=== PATIENT | female | born 1940 | race Caucasian/White ===

== ENCOUNTER → 2017-12-13 10:07 | Outpatient (CLI) | payer MEDICARE, OTHER, BC, SELFPAY ==
--- NOTE | 2017-12-15 06:53 | PFTCOMP ---
COMPLETE PULMONARY FUNCTION TEST INTERPRETATION Brief HPI: Patient is a 77 year old female, currently under the care of Dr. Jin, who presents to [facility] for complete pulmonary function tests secondary to diagnosis of cough. Respiratory therapist reports good effort and reproducible results. Interpretation: Forced expiration spirometry shows a moderately-severe large airways obstructive ventilatory defect with an FEV1 of 52% predicted. There is no significant bronchodilator response by strict ATS criteria. Spirograms are of good quality and plateau slowly, indicating slowly emptying areas of the lungs. The respiratory flow volume loop shows decreased expiratory flow rates at all lung volumes consistent with airway obstruction. Lung volumes by body plethysmography show a normal total lung capacity at 4.7 L, 95 % predicted. FRC and RV are elevated out of proportion. Lung volume measurements are consistent with air-trapping. Diffusion capacity by carbon monoxide is decreased at 46 % predicted. The airway resistance is elevated. No previous pulmonary function tests were available for review. Impression: Irreversible moderately severe large airways obstructive ventilatory defect with a symmetric reduction diffusing capacity, consistent with a diagnosis of COPD.
--- NOTE | 2017-12-15 06:56 | PFTCOMP_ITS ---
COMPLETE PULMONARY FUNCTION TEST INTERPRETATION Brief HPI: Patient is a 77 year old female, currently under the care of Dr. Jin , who presents to [facility] for complete pulmonary function tests secondary to diagnosis of cough. Respiratory therapist reports good effort and reproducible results. Interpretation: Forced expiration spirometry shows a moderately-severe large airways obstructive ventilatory defect with an FEV1 of 52% predicted. There is no significant bronchodilator response by strict ATS criteria. Spirograms are of good quality and plateau slowly, indicating slowly emptying areas of the lungs. The respiratory flow volume loop shows decreased expiratory flow rates at all lung volumes consistent with airway obstruction. Lung volumes by body plethysmography show a normal total lung capacity at 4.7 L , 95 % predicted. FRC and RV are elevated out of proportion. Lung volume measurements are consistent with air-trapping. Diffusion capacity by carbon monoxide is decreased at 46 % predicted. The airway resistance is elevated. No previous pulmonary function tests were available for review. Impression: Irreversible moderately severe large airways obstructive ventilatory defect with a symmetric reduction diffusing capacity, consistent with a diagnosis of COPD.
== END ==
PROVIDERS: Family Provider Family Medicine; PCP Family Medicine; Visit Provider Internal Medicine Critical Care Medicine
DX: R05 Cough (principal)
CPT/HCPCS: 94060; 94726; 94729

== ENCOUNTER 2018-02-19 17:19 | Inpatient (IN) | payer MEDICARE, OTHER, BC, SELFPAY ==
[2018-02-19 17:20] VITALS: BP 125/61; PULSE 81; RESP 16; TEMP 36.7; O2SAT 99; BMI 28.3
--- NOTE | 2018-02-19 17:50 | EKG12_ITS ---
Test Reason : ILLNESS Blood Pressure : / mmHG Vent. Rate : 077 BPM Atrial Rate : 077 BPM P-R Int : 164 ms QRS Dur : 086 ms QT Int : 406 ms P-R-T Axes : 051 030 071 degrees QTc Int : 459 ms Normal sinus rhythm Normal ECG Confirmed by CAITLIN JEFFERS, IRWIN ([id number]), editor managing newspaper BOBBI JONES ([id number]) on 02/25/2018 3:39:11 PM Referred By: SPARKLE Confirmed By:IRWIN TUCKER MD
--- NOTE | 2018-02-19 17:51 | CT_ITS ---
STUDY: CT ABDOMEN AND PELVIS WITH CONTRAST REASON FOR EXAM: Female, 77 years old. Crohn's, diverticulitis, nausea/vomiting/diarrhea RADIATION DOSAGE (If Supplied By Facility): CTDIvol = ( 16.66 ) mGy, DLP = ( 934.77 ) mGycm TECHNIQUE: Transaxial images were obtained from the dome of the diaphragm to the symphysis pubis without oral contrast. 100 ml of Isovue 300 contrast was administered. Sagittal and coronal images were reconstructed. Individualized dose optimization techniques were used for this CT. COMPARISON: None. FINDINGS: The visualized lung bases are unremarkable. The visualized portions of the heart are within normal limits. Normal liver. Mildly thickened gallbladder wall. No significant dilatation of the extrahepatic biliary system. Normal spleen. Normal pancreas. Normal bilateral adrenal glands. Punctate nonobstructive stone in the right kidney. 6 mm lower pole probable cyst of the left kidney. Normal visualized stomach. Mild wall thickening of the terminal ileum with mild adjacent mesenteric thickening. Prior surgery of the colon. Air-fluid levels are noted within the colon. The appendix is not visualized. Calcified abdominal aorta. Focal dilatation of the proximal abdominal aorta measuring 3.3 cm in diameter. Normal inferior vena cava. Normal retroperitoneum. Normal urinary bladder. Normal abdominal wall. Normal osseous structures. CT/Abdomen/Pelvis WITH Contrast IMPRESSION: Mild gallbladder wall thickening. Punctate nonobstructive right renal stone. Left renal cyst. Wall thickening of the terminal ileum with mild adjacent mesenteric stranding. This may be related to patient's history of Crohn's disease. Fluid colonic content with air-fluid levels. Focal dilatation of the proximal abdominal aorta. Electronically Signed: Kwan Escobar DO at 20:58 EDT Tel [phone], Service support ,
--- NOTE | 2018-02-19 17:51 | ED.VISSUMM ---
- ER Visit Summary Date of Service: 02/19/18 Chief Complaint: Abdominal pain History of Present Illness: The patient is a 77 F presenting with intermittent abdominal pain ?3 days. She has had nausea, vomiting, diarrhea. It is not unusual for her to have diarrhea. She has a history of Crohn's disease. She states she has had diarrhea approximately 6-10 times today. She had no blood in her stool. She has been vomiting 2-3 times today. She had no recent antibiotics or travel. She has a history of previous appendectomy and previous bowel resection. She does not currently have a GI physician. Physical Examination: Vitals are stable. Patient is afebrile. Alert no acute distress. HEENT exam is unremarkable. Neck is supple. Lungs are clear and equal bilaterally. Heart is regular rate and rhythm. Abdomen is soft mild diffuse tenderness with no rebound or guarding. Extremities are unremarkable. Skin is warm and dry. No focal neurologic deficit. Remainder of exam is unremarkable. Emergency Department Course and Treatment: Patient given IV fluids, Zofran. EKG is sinus rate is 77 with no acute changes. Chest x-ray shows right basilar atelectasis. CBC unremarkable. Chemistries show glucose 126, BUN 50, creatinine 1.65. This is elevated from her baseline. AST 60, lipase 196. CT abdomen pelvis shows mild gallbladder wall thickening, punctate nonobstructive right renal stone. Left renal cyst. wall thickening of the terminal ileum with mild adjacent mesenteric stranding. This may be related to patient's history of Crohn's disease. Fluid colonic content with air-fluid levels. Focal dilatation of the proximal abdominal aorta. Patient continues to be nauseated in the ED. Stool studies are ordered. Discussed with Dr. Zapata for admission. Disposition: Admission Impression: Nausea, vomiting, diarrhea; Crohn's flare; TEJINDER This note was generated with [employer] dictation software. It may contain incorrect words, spelling, and punctuation that were not noted in review of the chart prior to signing ED Disposition - Plan for ED Patient: Chief Complaint: Nausea/Vomiting/Diarrhea Referrals: Jorgito Gutierres III, MD [Primary Care Provider] -
--- NOTE | 2018-02-19 18:00 | RAD_ITS ---
STUDY: X-RAY CHEST REASON FOR EXAM: Female, 77 years old. Dehydration, shortness of breath TECHNIQUE: Single frontal view COMPARISON: October 04, 2008 FINDINGS: The lungs are clear and expanded. Minimal right basilar atelectasis. Normal size heart. Normal mediastinum and coby. Normal visualized pulmonary arteries. Normal visualized aortic arch and descending thoracic aorta. Normal visualized thoracic spine. Normal visualized ribs, clavicles, and shoulders. There is no demonstrated abnormality of the visualized soft tissue structures of the upper abdomen. RAD/Chest 1 View (Portable) IMPRESSION: Minimal right basilar atelectasis. Electronically Signed: Kwan Escobar DO at 18:24 EDT Tel [phone], Service support ,
[2018-02-19 18:05] LABS: Absolute Lymphocyte Count 2.12 X10^3/ul (0.83-4.51); Absolute Neutrophil Count 5.9 X10^3/uL (2.0-7.7); Basophil# 0.02 X10^3/uL; Basophil% 0.2 % (0-1); Eosinophil# 0.06 X10^3/uL; Eosinophils% 0.7 % (0-5); Hematocrit 38.8 % (37-47); Hemoglobin 12.1 g/dl (12.0-15.0); Lymphocyte # 2.12 X10^3/ul (4.0); Lymphocyte % 24.4 % (19-41); Mean Corp Hgb Conc 31.2 g/gl (32-36); Mean Corpuscular Hgb 25.7 pg (27.0-32.0); Mean Corpuscular Volume 82.4 fL (81-99); Mean Platelet Vol. 8.6 fl (6.2-12.0); Monocyte# 0.58 X10^3/uL; Monocyte% 6.7 % (0-10); Neutrophil % 67.9 % (47-70); POSITIVE COUNT NO; POSITIVE DIFFERENTIAL NO; POSITIVE MORPHOLOGY NO; Platelet Count 372 K/mm3 (150-450); RBC Distribution Width CV 16.2 % (11.6-14.6); RBC Distribution Width SD 49.2 fl (35.1-43.9); Red Blood Count 4.71 M/mm3 (4.2-5.4); White Blood Count 8.7 K/mm3 (4.4-11.0)
[2018-02-19] MEDS: 0.9% Normal Saline 1,000 ML 1000 ML IV (18:05)
[2018-02-19 18:16] LABS: ALB/GLOB Ratio 0.6 RATIO (0.9-2.4); AST(SGOT) 60 U/L (15-37); Alanine Aminotransfer ALT/SGPT 37 U/L (13-56); Albumin, Serum 3.1 g/dL (3.2-5.0); Alkaline Phosphatase 68 U/L (45-117); Anion Gap 7 (5-15); BUN 50 mg/dL (7-18); BUN/Creat Ratio 30.3 RATIO (10-20); Calcium,Total 8.5 mg/dL (8.5-10.1); Chloride 108 mmol/L (98-107); Creatinine, Serum 1.65 mg/dL (0.55-1.02); EST Glomerular Filtration Rate 32 mL/min (>60); Est Glom Filt Rate - Afr Amer 39 mL/min (>60); Estimated Creatinine Clearance 24.27 ml/min; Globulin 5.2 g/dL (2.2-4.2); Glucose 126 mg/dL (74-106); Lipase 196 U/L (73-393); Potassium 4.2 mmol/L (3.5-5.1); Protein, Total 8.3 g/dL (6.4-8.2); Sodium Level 138 mmol/L (136-145)
[2018-02-19] MEDS: Ondansetron 4 MG/2 ML Vial IV (18:52)
[2018-02-19 19:19] VITALS: BP 118/64; PULSE 79; RESP 14; O2SAT 99
[2018-02-19] MEDS: 0.9% Normal Saline 1,000 ML 999 ML IV (20:05)
[2018-02-19 20:24] LABS: Bacteria 0 SEEN /hpf (None Seen); Mucous, Urine 0 SEEN /hpf (<or=2+); Red Blood Cells-Urine 0 SEEN /hpf (0-5); Squamous Epithelial Cells - UA 0 SEEN /hpf (5-10); White Blood Cells 0 SEEN /hpf (0-5)
[2018-02-19 20:58] LABS: Color, Urine Yellow (Yellow); Glucose, Dipstick Normal (Normal); Ketone-Dipstick Negative (Negative); Leukocyte Esterase-Dipstick Negative /ul (Negative); Nitrite-Dipstick Negative (Negative); Occult Blood-Urine Negative /ul (Negative); Protein-Dipstick 15 mg/dl (Negative); Specific Gravity, Urine 1.015 (1.002-1.030); Urine Bilirubin Dipstick Negative (Negative); Urine Clarity Clear (Clear); Urine Urobilinogen Normal (Normal)
[2018-02-19 21:09] VITALS: PULSE 75; RESP 15; O2SAT 100
[2018-02-19 21:25] LABS: Hyaline Cast 0-5 SEEN /lpf (0-5)
[2018-02-19 21:39] VITALS: BP 118/64; PULSE 72; RESP 18; O2SAT 97
--- NOTE | 2018-02-19 21:50 | PCM.HP.STD ---
Problem List (1) Stage 2 moderate COPD by GOLD classification Status: Chronic Comment: FEV1 52% of predicted (2) Crohns disease Status: Chronic (3) Rheumatoid arthritis Status: Chronic Qualifiers: (4) HTN (hypertension) Status: Chronic (5) Dyslipidemia Status: Chronic History of Present Illness Date of Admission: 02/19/18 Chief Complaint: Abdominal pain. The patient is a 77 year old F with past medical history as mentioned above presented to the emergency room because of abdominal pain and diarrhea. The patient herself is a poor informant and she was able to provide brief history. Her daughter who is the caregiver was at the bedside and provides most of the information. According to the patient, his main presentation is vague abdominal pain, more on the left side, intermittent pain, sharp, 8 out of 10 in severity, sometimes goes across her abdomen, associated with diarrhea as well as intermittent nausea and vomiting. She does have a history of Crohn's disease and normally, she has 6-8 bowel movement daily with loose stool without blood. Her diarrhea has been the same frequency as before without any change. Her daughter mentioned that she has been complaining of abdominal pain as well as nausea and vomiting and she was not able to eat or drink for the last couple of days. She denies fever or chills. Denied urinary symptoms. She has a history of Crohn's disease and she is on prednisone for long time. She has a history of rheumatoid arthritis and she has been on [place] as needed as well as prednisone. She has history of hypertension and her blood pressure seems under control with lisinopril and Aldactone. In the emergency room, her vital signs were stable and she was afebrile her routine blood work was remarkable for BUN 50 and creatinine of 1.65. LFT was normal. Lipase was normal. Urinalysis revealed no evidence of acute cystitis or UTI. EKG revealed normal sinus rhythm without evidence of acute ischemic changes. CT scan abdomen and pelvis with contrast revealed mild thickening of the gallbladder wall, punctate nonobstructive right kidney stone, wall thickening of the terminal ileum with mild adjacent mesenteric stranding. Chest x-ray showed no infiltrate, consolidation or effusion. She is being admitted for mild acute exacerbation of Crohn's disease and acute kidney injury. Past Medical History Past Medical History (Chronic Problems): Chronic Problems (Last Reviewed 12/31/17 @ 10:27 by Yuki Casarez, QUALITY CONTROL ANALYST-C) PND (post-nasal drip) (Chronic) Stage 2 moderate COPD by GOLD classification (Chronic) FEV1 52% of predicted Tobacco dependence in remission (Chronic) Chronic cough (Chronic) Crohns disease (Chronic) Rheumatoid arthritis (Chronic) Immunosuppressed status (Chronic) on etanercept HTN (hypertension) (Chronic) Dyslipidemia (Chronic) Allergies atorvastatin Allergy (Severe, Verified 02/19/18 17:28) Unknown rosuvastatin calcium [From Crestor] Allergy (Verified 02/19/18 17:28) Unknown prednisone Adverse Reaction (Severe, Verified 02/19/18 17:28) mental status change Home Medications: Ambulatory Orders Medication Instructions Recorded Hydrocodone Bitart/Apap 5-325 1 tab PO Q6H PRN PRN #20 tab 11/14/14 [[place] 5/325] Fluoxetine [Prozac] 10 mg PO DAILY 11/16/14 Lisinopril [Zestril] 20 mg PO DAILY 11/16/14 diphenoxylate-atropine 2.5 1 tab PO .QID PRN tab 11/28/17 mg-0.025 mg tablet prednisone 5 mg tablet 5 mg PO QDAY 11/28/17 Spironolactone [Aldactone] 25 mg PO DAILY 02/19/18 Surgical History: appendectomy, total hip arthroplasty Psychiatric History: Depression 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 Denies: Chills, Fever Eyes: Denies: Blurred vision, Double vision, Drainage, Redness HEENT: Denies: Difficulty Hearing, Ear Pain, Eye Pain, Nasal Congestion, Sore Throat Cardiovascular: Denies: Chest Pain, Chest Pressure, Chest Tightness, Heaviness, Palpitations, Syncope Respiratory: Denies: Cough, Pleuritic Pain, Shortness of Breath, Sputum production, Wheezing Gastrointestinal: Reports: Abdominal Pain, Diarrhea, Nausea, Vomiting. Denies: Constipation, Hematochezia, Melena Genitourinary: Denies: Dysuria, Frequency, Hematuria Musculoskeletal: Denies: Arm Pain, Back Pain, Foot Pain Skin: Denies: Dryness, Rash Neurological: Denies: Balance problems, Double vision, Change in Speech, Slurred speech, Confusion, Headaches, Incoordination, Numbness Psychiatric: Denies: Anxiety, Depression Endocrine: Denies: Change in Body Habitus, Polydipsia VTE Information - Inpt Only VTE Present on Admission: No VTE Mechan Device Prophylaxis: None VTE Pharm Prophylaxis ordered?: Yes - Physical Exam General: Alert, Oriented x3, Cooperative, No apparent distress HEENT: Atraumatic, PERRLA, EOMI Oral: Moist Mucosa, No Gingival or Mucosal Lesions/ Ulcerations Neck: Supple, No JVD, Negative Carotid Bruits, Trachea Midline, Thyroid Normal Size and Texture Lungs: Clear to auscultation, No rhonchi, No wheeze, No rales, Diminished Cardiovascular: Regular rate, Regular Rhythm, Normal S1, Normal S2, PMI Normal Abdomen: Bowel Sounds Present, Soft, Non Tender, Non-Distended, No Hepato-splenomegaly Extremities: No clubbing, No cyanosis, No edema Skin: No rashes, No breakdown Lymphatic: No Cervical, Supraclavicular, or Inguinal Adenopathy Neurological: Cranial nerves II-XII grossly intact, Motor Exam 5/5 strength throughout Psych/Mental Status: Normal Affect, Appropriate, Alert and oriented to time, place, person, mood and affect Vital Signs Temp Pulse Resp BP Pulse Ox 98.1 F 72 18 118/64 97 02/19/18 17:20 02/19/18 21:39 02/19/18 21:39 02/19/18 21:39 02/19/18 21:39 Laboratory Tests 02/19/18 02/19/18 02/19/18 Range/Units 20:19 17:35 17:35 WBC 8.7 (4.4-11.0) K/mm3 RBC 4.71 (4.2-5.4) M/mm3 Hgb 12.1 (12.0-15.0) g/dl Hct 38.8 (37-47) % MCV 82.4 (81-99) fL MCH 25.7 L (27.0-32.0) pg MCHC 31.2 L (32-36) g/gl RDW 16.2 H (11.6-14.6) % RDW Differential 49.2 H (35.1-43.9) fl Plt Count 372 (150-450) K/mm3 MPV 8.6 (6.2-12.0) fl Immature Gran % (Auto) 0.100 (0.0-0.9) % Neut % (Auto) 67.9 (47-70) % Lymph % (Auto) 24.4 (19-41) % [place] % (Auto) 6.7 (0-10) % Eos % (Auto) 0.7 (0-5) % Baso % (Auto) 0.2 (0-1) % Absolute Neuts (auto) 5.9 (2.0-7.7) X10^3/uL Absolute Lymphs (auto) 2.12 (0.83-4.51) X10^3/ul Total Counted Not Reportable Sodium 138 (136-145) mmol/L Potassium 4.2 (3.5-5.1) mmol/L Chloride 108 H (98-107) mmol/L Carbon Dioxide 23.0 (21.0-32.0) mmol/L Anion Gap 7 (5-15) BUN 50 H (7-18) mg/dL Creatinine 1.65 H (0.55-1.02) mg/dL Estim Creat Clear Calc 24.27 ml/min Est GFR (MDRD) Af Amer 39 L (>60) mL/min Est GFR (MDRD) Non-Af 32 L (>60) mL/min BUN/Creatinine Ratio 30.3 H (10-20) RATIO Glucose 126 H (74-106) mg/dL Calcium 8.5 (8.5-10.1) mg/dL Total Bilirubin 0.40 (0.20-1.00) mg/dL AST 60 H (15-37) U/L ALT 37 (13-56) U/L Alkaline Phosphatase 68 (45-117) U/L Total Protein 8.3 H (6.4-8.2) g/dL Albumin 3.1 L (3.2-5.0) g/dL Globulin 5.2 H (2.2-4.2) g/dL Albumin/Globulin Ratio 0.6 L (0.9-2.4) RATIO Lipase 196 (73-393) U/L Urine Color Yellow (Yellow) Urine Clarity Clear (Clear) Urine pH 5.0 (5.0 - 8.0) Ur Specific [place] 1.015 (1.002-1.030) Urine Protein 15 H (Negative) mg/dl Urine Glucose (UA) Normal (Normal) mg/dl Urine Ketones Negative (Negative) mg/dl Urine Occult Blood Negative (Negative) /ul Urine Nitrite Negative (Negative) Urine Bilirubin Negative (Negative) mg/dL Urine Urobilinogen Normal (Normal) mg/dl Ur Leukocyte Esterase Negative (Negative) /ul Urine RBC 0 SEEN (0-5) /hpf Urine WBC 0 SEEN (0-5) /hpf Ur Squamous Epith Cells 0 SEEN (5-10) /hpf Urine Bacteria 0 SEEN (None Seen) /hpf Hyaline Casts 0-5 SEEN (0-5) /lpf Urine Mucus 0 SEEN (<or=2+) /hpf Clinical Impression(s) from Imaging Studies Abdomen/Pelvis CT 02/19/18 17:51 IMPRESSION: Mild gallbladder wall thickening. Punctate nonobstructive right renal stone. Left renal cyst. Wall thickening of the terminal ileum with mild adjacent mesenteric stranding. This may be related to patient's history of Crohn's disease. Fluid colonic content with air-fluid levels. Focal dilatation of the proximal abdominal aorta. Electronically Signed: Kwan Escobar DO at 20:58 EDT Tel [phone], Service support , Chest X-Ray 02/19/18 18:00 IMPRESSION: Minimal right basilar atelectasis. Electronically Signed: Kwan Escobar DO at 18:24 EDT Tel [phone], Service support , Assessment/Plan This is a 77 years old female patient presented to the emergency room because of abdominal pain, diarrhea and nausea and she was found to have mild acute exacerbation of Crohn's disease and acute kidney injury. #1 mild acute exacerbation of Crohn's disease: This is based on symptoms of abdominal pain, diarrhea, nausea and vomiting as well as CT scan abdomen and pelvis findings. Patient is afebrile, vital signs are stable, not tachycardic and she has no leukocytosis. Probably, she has mild acute flareup of her Crohn's disease. Plan: Admit to Medr floor, IV fluids for hydration, full liquid diet and advance as tolerated, replace electrolytes as appropriate, start prednisone 60 mg p.o. daily, IV morphine as needed for pain, stool for C. difficile, stool for enteric pathogens, stool for ova and parasites, repeat CBC and CMP tomorrow morning. #2 acute kidney injury: Likely prerenal secondary to dehydration, diarrhea and poor oral intake in addition to lisinopril and Aldactone. Plan: IV fluids, input output chart, hold Aldactone, repeat CMP tomorrow morning. #3 rheumatoid arthritis: Continue [place] as needed as well as increased dose of prednisone from 5 mg p.o. daily to 60 mg p.o. daily. #4 hypertension: Blood pressure stable, continue lisinopril. #5 COPD: Clinically stable, pulse ox is maintained on room air. Plan for albuterol as needed. #6 depression: Continue Prozac. #7 DVT prophylaxis: Subcu heparin. This note was generated with [employer] dictation software. It may contain incorrect words, spelling, and punctuation that were not noted in checking the note before signing. Code Visit Inpatient E&M: 93253 Init Hosp L3
--- NOTE | 2018-02-19 22:00 | HP.PCM_ITS ---
Problem List (1) Stage 2 moderate COPD by GOLD classification Status: Chronic Comment: FEV1 52% of predicted (2) Crohns disease Status: Chronic (3) Rheumatoid arthritis Status: Chronic Qualifiers: (4) HTN (hypertension) Status: Chronic (5) Dyslipidemia Status: Chronic History of Present Illness Date of Admission: 02/19/18 Chief Complaint: Abdominal pain. The patient is a 77 year old F with past medical history as mentioned above presented to the emergency room because of abdominal pain and diarrhea. The patient herself is a poor informant and she was able to provide brief history. Her daughter who is the caregiver was at the bedside and provides most of the information. According to the patient, his main presentation is vague abdominal pain, more on the left side, intermittent pain, sharp, 8 out of 10 in severity, sometimes goes across her abdomen, associated with diarrhea as well as intermittent nausea and vomiting. She does have a history of Crohn's disease and normally, she has 6-8 bowel movement daily with loose stool without blood. Her diarrhea has been the same frequency as before without any change. Her daughter mentioned that she has been complaining of abdominal pain as well as nausea and vomiting and she was not able to eat or drink for the last couple of days. She denies fever or chills. Denied urinary symptoms. She has a history of Crohn's disease and she is on prednisone for long time. She has a history of rheumatoid arthritis and she has been on Freeman as needed as well as prednisone. She has history of hypertension and her blood pressure seems under control with lisinopril and Aldactone. In the emergency room, her vital signs were stable and she was afebrile her routine blood work was remarkable for BUN 50 and creatinine of 1.65. LFT was normal. Lipase was normal. Urinalysis revealed no evidence of acute cystitis or UTI. EKG revealed normal sinus rhythm without evidence of acute ischemic changes. CT scan abdomen and pelvis with contrast revealed mild thickening of the gallbladder wall, punctate nonobstructive right kidney stone, wall thickening of the terminal ileum with mild adjacent mesenteric stranding. Chest x-ray showed no infiltrate, consolidation or effusion. She is being admitted for mild acute exacerbation of Crohn's disease and acute kidney injury. Past Medical History Past Medical History (Chronic Problems): Chronic Problems (Last Reviewed 12/31/17 @ 10:27 by Yuki Casarez, [employer]) PND (post-nasal drip) (Chronic) Stage 2 moderate COPD by GOLD classification (Chronic) FEV1 52% of predicted Tobacco dependence in remission (Chronic) Chronic cough (Chronic) Crohns disease (Chronic) Rheumatoid arthritis (Chronic) Immunosuppressed status (Chronic) on etanercept HTN (hypertension) (Chronic) Dyslipidemia (Chronic) Allergies atorvastatin Allergy (Severe, Verified 02/19/18 17:28) Unknown rosuvastatin calcium [From Crestor] Allergy (Verified 02/19/18 17:28) Unknown prednisone Adverse Reaction (Severe, Verified 02/19/18 17:28) mental status change Home Medications: Ambulatory Orders Medication Instructions Recorded Hydrocodone Bitart/Apap 5-325 1 tab PO Q6H PRN PRN #20 tab 11/14/14 [[place] 5/325] Fluoxetine [Prozac] 10 mg PO DAILY 11/16/14 Lisinopril [Zestril] 20 mg PO DAILY 11/16/14 diphenoxylate-atropine 2.5 1 tab PO .QID PRN tab 11/28/17 mg-0.025 mg tablet prednisone 5 mg tablet 5 mg PO QDAY 11/28/17 Spironolactone [Aldactone] 25 mg PO DAILY 02/19/18 Surgical History: appendectomy, total hip arthroplasty Psychiatric History: Depression 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 Denies: Chills, Fever Eyes: Denies: Blurred vision, Double vision, Drainage, Redness HEENT: Denies: Difficulty Hearing, Ear Pain, Eye Pain, Nasal Congestion, Sore Throat Cardiovascular: Denies: Chest Pain, Chest Pressure, Chest Tightness, Heaviness, Palpitations, Syncope Respiratory: Denies: Cough, Pleuritic Pain, Shortness of Breath, Sputum production, Wheezing Gastrointestinal: Reports: Abdominal Pain, Diarrhea, Nausea, Vomiting. Denies: Constipation, Hematochezia, Melena Genitourinary: Denies: Dysuria, Frequency, Hematuria Musculoskeletal: Denies: Arm Pain, Back Pain, Foot Pain Skin: Denies: Dryness, Rash Neurological: Denies: Balance problems, Double vision, Change in Speech, Slurred speech, Confusion, Headaches, Incoordination, Numbness Psychiatric: Denies: Anxiety, Depression Endocrine: Denies: Change in Body Habitus, Polydipsia VTE Information - Inpt Only VTE Present on Admission: No VTE Mechan Device Prophylaxis: None VTE Pharm Prophylaxis ordered?: Yes - Physical Exam General: Alert, Oriented x3, Cooperative, No apparent distress HEENT: Atraumatic, PERRLA, EOMI Oral: Moist Mucosa, No Gingival or Mucosal Lesions/ Ulcerations Neck: Supple, No JVD, Negative Carotid Bruits, Trachea Midline, Thyroid Normal Size and Texture Lungs: Clear to auscultation, No rhonchi, No wheeze, No rales, Diminished Cardiovascular: Regular rate, Regular Rhythm, Normal S1, Normal S2, PMI Normal Abdomen: Bowel Sounds Present, Soft, Non Tender, Non-Distended, No Hepato- splenomegaly Extremities: No clubbing, No cyanosis, No edema Skin: No rashes, No breakdown Lymphatic: No Cervical, Supraclavicular, or Inguinal Adenopathy Neurological: Cranial nerves II-XII grossly intact, Motor Exam 5/5 strength throughout Psych/Mental Status: Normal Affect, Appropriate, Alert and oriented to time, place, person, mood and affect Vital Signs Temp Pulse Resp BP Pulse Ox 98.1 F 72 18 118/64 97 02/19/18 17:20 02/19/18 21:39 02/19/18 21:39 02/19/18 21:39 02/19/18 21:39 Laboratory Tests 3 02/19/18 02/19/18 02/19/18 Range/Units 20:19 17:35 17:35 WBC 8.7 (4.4-11.0) K/mm3 RBC 4.71 (4.2-5.4) M/mm3 Hgb 12.1 (12.0-15.0) g/dl Hct 38.8 (37-47) % MCV 82.4 (81-99) fL MCH 25.7 L (27.0-32.0) pg MCHC 31.2 L (32-36) g/gl RDW 16.2 H (11.6-14.6) % RDW Differential 49.2 H (35.1-43.9) fl Plt Count 372 (150-450) K/mm3 MPV 8.6 (6.2-12.0) fl Immature Gran % (Auto) 0.100 (0.0-0.9) % Neut % (Auto) 67.9 (47-70) % Lymph % (Auto) 24.4 (19-41) % [place] % (Auto) 6.7 (0-10) % Eos % (Auto) 0.7 (0-5) % Baso % (Auto) 0.2 (0-1) % Absolute Neuts (auto) 5.9 (2.0-7.7) X10^3/uL Absolute Lymphs (auto) 2.12 (0.83-4.51) X10^3/ul Total Counted Not Reportable Sodium 138 (136-145) mmol/L Potassium 4.2 (3.5-5.1) mmol/L Chloride 108 H (98-107) mmol/L Carbon Dioxide 23.0 (21.0-32.0) mmol/L Anion Gap 7 (5-15) BUN 50 H (7-18) mg/dL Creatinine 1.65 H (0.55-1.02) mg/dL Estim Creat Clear Calc 24.27 ml/min Est GFR (MDRD) Af Amer 39 L (>60) mL/min Est GFR (MDRD) Non-Af 32 L (>60) mL/min BUN/Creatinine Ratio 30.3 H (10-20) RATIO Glucose 126 H (74-106) mg/dL Calcium 8.5 (8.5-10.1) mg/dL Total Bilirubin 0.40 (0.20-1.00) mg/dL AST 60 H (15-37) U/L ALT 37 (13-56) U/L Alkaline Phosphatase 68 (45-117) U/L Total Protein 8.3 H (6.4-8.2) g/dL Albumin 3.1 L (3.2-5.0) g/dL Globulin 5.2 H (2.2-4.2) g/dL Albumin/Globulin Ratio 0.6 L (0.9-2.4) RATIO Lipase 196 (73-393) U/L Urine Color Yellow (Yellow) Urine Clarity Clear (Clear) Urine pH 5.0 (5.0 - 8.0) Ur Specific [place] 1.015 (1.002-1.030) Urine Protein 15 H (Negative) mg/dl Urine Glucose (UA) Normal (Normal) mg/dl Urine Ketones Negative (Negative) mg/dl Urine Occult Blood Negative (Negative) /ul Urine Nitrite Negative (Negative) Urine Bilirubin Negative (Negative) mg/dL Urine Urobilinogen Normal (Normal) mg/dl Ur Leukocyte Esterase Negative (Negative) /ul Urine RBC 0 SEEN (0-5) /hpf Urine WBC 0 SEEN (0-5) /hpf Ur Squamous Epith Cells 0 SEEN (5-10) /hpf Urine Bacteria 0 SEEN (None Seen) /hpf Hyaline Casts 0-5 SEEN (0-5) /lpf Urine Mucus 0 SEEN (<or=2+) /hpf Clinical Impression(s) from Imaging Studies Abdomen/Pelvis CT 02/19/18 17:51 IMPRESSION: Mild gallbladder wall thickening. Punctate nonobstructive right renal stone. Left renal cyst. Wall thickening of the terminal ileum with mild adjacent mesenteric stranding. This may be related to patient's history of Crohn's disease. Fluid colonic content with air-fluid levels. Focal dilatation of the proximal abdominal aorta. Electronically Signed: Kwan Escobar DO at 20:58 EDT Tel [phone], Service support , Chest X-Ray 02/19/18 18:00 IMPRESSION: Minimal right basilar atelectasis. Electronically Signed: Kwan Escobar DO at 18:24 EDT Tel [phone], Service support , Assessment/Plan This is a 77 years old female patient presented to the emergency room because of abdominal pain, diarrhea and nausea and she was found to have mild acute exacerbation of Crohn's disease and acute kidney injury. #1 mild acute exacerbation of Crohn's disease: This is based on symptoms of abdominal pain, diarrhea, nausea and vomiting as well as CT scan abdomen and pelvis findings. Patient is afebrile, vital signs are stable, not tachycardic and she has no leukocytosis. Probably, she has mild acute flareup of her Crohn' s disease. [facility], IV fluids for hydration, full liquid diet and advance as tolerated, replace electrolytes as appropriate, start prednisone 60 mg p.o. daily, IV morphine as needed for pain, stool for C. difficile, stool for enteric pathogens, stool for ova and parasites, repeat CBC and CMP tomorrow morning. #2 acute kidney injury: Likely prerenal secondary to dehydration, diarrhea and poor oral intake in addition to lisinopril and Aldactone. Plan: IV fluids, input output chart, hold Aldactone, repeat CMP tomorrow morning. #3 rheumatoid arthritis: Continue Freeman as needed as well as increased dose of prednisone from 5 mg p.o. daily to 60 mg p.o. daily. #4 hypertension: Blood pressure stable, continue lisinopril. #5 COPD: Clinically stable, pulse ox is maintained on room air. Plan for albuterol as needed. #6 depression: Continue Prozac. #7 DVT prophylaxis: Subcu heparin. This note was generated with [employer] dictation software. It may contain incorrect words, spelling, and punctuation that were not noted in checking the note before signing. Code Visit Inpatient E&M: 50198 Init Hosp L3
[2018-02-19 22:14] VITALS: BMI 27.6; BMI 27.7
--- NOTE | 2018-02-19 22:17 | NURSING ---
Pt is to have Thicken liquids but pt is VERY noncompliant..Does not like the taste/texture.
[2018-02-19 22:49] VITALS: BP 149/66; PULSE 69; RESP 20; TEMP 36.5; O2SAT 96
--- NOTE | 2018-02-19 23:38 | NURSING ---
Pt's daughter, Nicky, took pt's home meds & med alert bracelet home with her.
[2018-02-19] MEDS: 0.9% Normal Saline 1,000 ML 100 ML IV (23:45)
[2018-02-19] MEDS: Diphenoxylate/Atrop 1 Tablet PO (23:46)
[2018-02-19] MEDS: HYDROcodone Bitartrate/Apap 5/325 Tablet PO (23:46)
[2018-02-19] MEDS: predniSONE 20 MG Tablet 60 MG PO (23:47)
[2018-02-19] MEDS: 0.9% NaCl Peripheral Flush Adult/Peds IV (23:48)
[2018-02-20 04:32] VITALS: BP 138/66; PULSE 74; RESP 16; TEMP 36.8; O2SAT 93
[2018-02-20 06:32] LABS: Absolute Lymphocyte Count 1.06 X10^3/ul (0.83-4.51); Absolute Neutrophil Count 6.9 X10^3/uL (2.0-7.7); Basophil# 0.01 X10^3/uL; Basophil% 0.1 % (0-1); Hematocrit 36.4 % (37-47); Hemoglobin 11.7 g/dl (12.0-15.0); Lymphocyte # 1.06 X10^3/ul (4.0); Lymphocyte % 13.2 % (19-41); Mean Corp Hgb Conc 32.1 g/gl (32-36); Mean Corpuscular Hgb 26.4 pg (27.0-32.0); Mean Corpuscular Volume 82.2 fL (81-99); Mean Platelet Vol. 8.9 fl (6.2-12.0); Monocyte% 1.2 % (0-10); Neutrophil # 6.85 X10^3/uL (2.7-7.7); Neutrophil % 85.3 % (47-70); Platelet Count 342 K/mm3 (150-450); RBC Distribution Width CV 16.3 % (11.6-14.6); Red Blood Count 4.43 M/mm3 (4.2-5.4)
[2018-02-20 06:52] LABS: POSITIVE COUNT NO; POSITIVE DIFFERENTIAL NO; POSITIVE MORPHOLOGY NO
[2018-02-20 06:55] LABS: ALB/GLOB Ratio 0.6 RATIO (0.9-2.4); AST(SGOT) 31 U/L (15-37); Alanine Aminotransfer ALT/SGPT 32 U/L (13-56); Albumin, Serum 2.7 g/dL (3.2-5.0); Alkaline Phosphatase 64 U/L (45-117); Anion Gap 9 (5-15); BUN 31 mg/dL (7-18); BUN/Creat Ratio 35.5 RATIO (10-20); Calcium,Total 8.1 mg/dL (8.5-10.1); Chloride 112 mmol/L (98-107); Creatinine, Serum 0.87 mg/dL (0.55-1.02); EST Glomerular Filtration Rate 67 mL/min (>60); Est Glom Filt Rate - Afr Amer 81 mL/min (>60); Estimated Creatinine Clearance 46.02 ml/min; Globulin 4.4 g/dL (2.2-4.2); Glucose 146 mg/dL (74-106); Potassium 4.2 mmol/L (3.5-5.1); Protein, Total 7.1 g/dL (6.4-8.2); Sodium Level 140 mmol/L (136-145)
[2018-02-20 08:00] VITALS: BP 147/73; PULSE 81; RESP 16; TEMP 37.3; O2SAT 94
[2018-02-20] MEDS: predniSONE 20 MG Tablet 60 MG PO (08:21)
[2018-02-20] MEDS: Lisinopril 20 MG Tablet PO (08:22)
[2018-02-20] MEDS: FLUoxetine 10 MG Capsule PO (08:22)
[2018-02-20] MEDS: 0.9% Normal Saline 1,000 ML 100 ML IV ×2 (09:16→19:16)
--- NOTE | 2018-02-20 11:23 | PCM.PROGNOTE ---
Subjective: Patient is a 77-year-old female with a past medical history of moderate COPD, rheumatoid arthritis, Crohn's disease, hypertension and dyslipidemia who presented to the emergency room at [facility] on 02/19/2018 complaining of abdominal pain associated with diarrhea, N/V. Has Crohn's disease and normally has 6-8 bowel movements daily and this has not really changed. Oral intake has been decreased for the past couple days. She denied fever or chills. No signs of presentation to the emerge pulse rate 81, blood pressure 125/61, respiratory rate 16 and she was 99% saturated on room air. White blood cell count was normal at 8.7 with an unremarkable differential. Hemoglobin and platelets are within normal limits. Electrolytes were unremarkable but the BUN was 50 and the creatinine was 1.65. CT scan of the abdomen and pelvis showed mild gallbladder wall thickening, punctate nonobstructive stones in the right kidney. There was a left renal cyst and there was wall thickening of the terminal ileum with mild adjacent mesenteric stranding. There was fluid colonic content with air-fluid levels. There was a focal dilatation of the proximal abdominal aorta measuring 3.3 cm. She was admitted to the hospital with a diagnosis of acute exacerbation of Crohn's disease and started on prednisone 60 mg p.o. daily. Enteric pathogen panel and C. Diff are negative. she denies abdominal pain today and has not had any N/V. She is tolerating a fulL liquid diet. She is a very poor historian and her dtr is in the room and also does not know a lot about her meds or her history. Will need to talk to her bander operator Nicky to get any significant history. - Physical Exam General: Alert, Cooperative, No apparent distress, Well developed, Well nourished, Confused HEENT: Atraumatic, Normocephalic Oral: Moist Mucosa Lungs: Clear to auscultation Cardiovascular: Regular rate, Regular Rhythm, Normal S1, Normal S2 Abdomen: Bowel Sounds Present, Soft, Non Tender, Distended - and tympanic in the upper abdomen., - - No guarding with palpation Extremities: No cyanosis, No edema, No Calf Tenderness Skin: No rashes Neurological: Cranial nerves II-XII grossly intact, Neuro grossly intact Psych/Mental Status: Normal Affect, Appropriate Vital Signs Temp Pulse Resp BP Pulse Ox 99.2 F H 81 16 147/73 H 94 02/20/18 08:00 02/20/18 08:00 02/20/18 08:00 02/20/18 08:00 02/20/18 08:00 Oxygen Delivery Method Room Air Weight: 161 lb 2.526 oz Body Mass Index (BMI) 27.6 Intake and Output for Last 24 Hours 02/18/18 02/19/18 02/20/18 23:59 23:59 23:59 Intake Total 894.7 / 894.7 Balance 894.7 / 894.7 Microbiology Past 72 Hours 02/19/18 22:50 Enteric Bacteriology - Final Stool 02/19/18 22:50 C. difficile DNA Amplification - Final Stool Laboratory Tests Past 24 Hrs 02/20/18 02/20/18 05:55 05:55 WBC 8.0 RBC 4.43 Hgb 11.7 L Hct 36.4 L MCV 82.2 MCH 26.4 L MCHC 32.1 RDW 16.3 H RDW Differential 48.0 H Plt Count 342 MPV 8.9 Immature Gran % (Auto) 0.200 Neut % (Auto) 85.3 H Lymph % (Auto) 13.2 L [place] % (Auto) 1.2 Eos % (Auto) 0.0 Baso % (Auto) 0.1 Absolute Neuts (auto) 6.9 Absolute Lymphs (auto) 1.06 Total Counted Not Reportable Sodium 140 Potassium 4.2 Chloride 112 H Carbon Dioxide 19.0 L Anion Gap 9 BUN 31 H Creatinine 0.87 Estim Creat Clear Calc 46.02 Est GFR (MDRD) Af Amer 81 Est GFR (MDRD) Non-Af 67 BUN/Creatinine Ratio 35.5 H Glucose 146 H Calcium 8.1 L Total Bilirubin 0.40 AST 31 ALT 32 Alkaline Phosphatase 64 Total Protein 7.1 Albumin 2.7 L Globulin 4.4 H Albumin/Globulin Ratio 0.6 L Medical Necessity - Tobacco Use Smoking Status: Former smoker Assessment/Plan Impressions 1. reported diarrhea, N/V but has had none of this today? Enteric pathogen panel and C. difficile are negative. Ova and parasites is pending. Continue the prednisone for possible acute exacerbation Crohn's 2. suspect she has an element of dementia - will discuss with her dtr Nicky 3. RA 4. long standing steroid dependence - high risk for significant osteoporosis. will ask Nicky if she has ever had a DEXA 5. dehydration with hemoconcentration continue the prednisone Continue IV fluids Recheck lab in the a.m. Maintain full liquid diet Code Visit Inpatient E&M: 60367 Subs Hosp L2
--- NOTE | 2018-02-20 13:09 | PCA ---
therapy working with pt
--- NOTE | 2018-02-20 13:59 | CASEMGMT ---
CARRIE FORBES Face to Face with patient for initial transition planning/care coordination assessment. CARRIE FORBES introduced self and role at [facility]. Patient sitting in chair, alert and oriented, daughter Glo at bedside. Patient willing to participate in assessment and is able to answer all questions appropriately. Care providers, pharmacy, and demographics verified. See link attached. Patient wishes to discharge home with resumption of aide services through [facility]. With patient's permission norberto Saunders called to discuss care. Nicky requesting senior care and PT/OT and would like [facility]. CARRIE FORBES discussed with patient and she is agreeable to [facility] for group home and PT/OT. Patient states she has no further needs or concerns at this time. CM to follow for discharge planning needs that may arise. Disposition Plan: Patient to discharge home with [facility], family support, and follow-up plans in place.
[2018-02-20] MEDS: Menthol/Lanolin/Calamine/Znox 113 GM Tube 1 APPLIC TOPICAL ×2 (15:55→20:32)
[2018-02-20 15:57] VITALS: BP 152/73; PULSE 73; RESP 16; TEMP 36.4; O2SAT 93
--- NOTE | 2018-02-20 16:10 | CASEMGMT ---
Referral made to [facility] for nursing home and PT/OT. RN CM will continue to follow this patient and plan for a safe discharge.
[2018-02-20] MEDS: HYDROcodone Bitartrate/Apap 5/325 Tablet PO (20:32)
[2018-02-20] MEDS: Diphenoxylate/Atrop 1 Tablet PO (20:32)
--- NOTE | 2018-02-20 21:02 | NURSING ---
Dr Gold. the daughter is in the room and would like to speak with you. The Pt states you were in today but you must have missed daughter barrington. He phone number is in the chart. Thanks
[2018-02-20 22:00] VITALS: BP 142/72; PULSE 71; RESP 18; TEMP 36.7; O2SAT 94
[2018-02-21 05:33] VITALS: BP 144/65; PULSE 80; RESP 18; TEMP 36.7; O2SAT 99
[2018-02-21] MEDS: Menthol/Lanolin/Calamine/Znox 113 GM Tube 1 APPLIC TOPICAL ×3 (05:39→22:38)
[2018-02-21] MEDS: 0.9% Normal Saline 1,000 ML 100 ML IV ×2 (05:40→15:36)
[2018-02-21 06:23] LABS: Hematocrit 31.3 % (37-47); Hemoglobin 9.8 g/dl (12.0-15.0); Mean Corp Hgb Conc 31.3 g/gl (32-36); Mean Corpuscular Hgb 25.9 pg (27.0-32.0); Mean Corpuscular Volume 82.6 fL (81-99); Mean Platelet Vol. 8.8 fl (6.2-12.0); Platelet Count 325 K/mm3 (150-450); RBC Distribution Width CV 16.3 % (11.6-14.6); RBC Distribution Width SD 47.2 fl (35.1-43.9); Red Blood Count 3.79 M/mm3 (4.2-5.4); White Blood Count 8.7 K/mm3 (4.4-11.0)
[2018-02-21 06:30] LABS: Scan Indicated on CBC? Y/N NO
[2018-02-21 06:43] LABS: Anion Gap 7 (5-15); BUN 13 mg/dL (7-18); BUN/Creat Ratio 19.7 RATIO (10-20); Chloride 114 mmol/L (98-107); Creatinine, Serum 0.66 mg/dL (0.55-1.02); EST Glomerular Filtration Rate 92 mL/min (>60); Est Glom Filt Rate - Afr Amer 111 mL/min (>60); Estimated Creatinine Clearance 40.04 ml/min; Glucose 95 mg/dL (74-106); Magnesium 1.8 mg/dL (1.6-2.6); Phosphorus 1.8 mg/dL (2.5-4.9); Potassium 3.7 mmol/L (3.5-5.1); Sodium Level 144 mmol/L (136-145)
[2018-02-21 10:19] VITALS: BP 145/75; PULSE 60; RESP 18; TEMP 36.4; O2SAT 99
[2018-02-21] MEDS: Lisinopril 20 MG Tablet PO (10:35)
[2018-02-21] MEDS: FLUoxetine 10 MG Capsule PO (10:35)
[2018-02-21] MEDS: predniSONE 20 MG Tablet 60 MG PO (10:35)
[2018-02-21 16:06] VITALS: BP 163/81; PULSE 82; RESP 18; TEMP 36.4; O2SAT 97
--- NOTE | 2018-02-21 19:17 | PCM.PROGNOTE ---
Subjective: Afebrile. Vital signs stable. She is 97-99% saturated on room air. All lab was personally reviewed. White blood cell count today is 8.7. Hemoglobin is 9.8, down from 12.1 at admission but she was hemoconcentrated at admission. Electrolytes are within normal limits today. BUN is 13 and the creatinine is 0.66, Down from 1.65 at admission. Phosphorus is low at 1.8 today. Ova and parasites are still pending. She denies nausea, vomiting, abdominal pain. States her bowel movements are normal now. Objective: Physical Exam General: Alert, Cooperative, No apparent distress, Well developed, Well nourished, Confused and forgetful HEENT: Atraumatic, Normocephalic Oral: Moist Mucosa Lungs: Clear to auscultation Cardiovascular: Regular rate, Regular Rhythm, Normal S1, Normal S2 Abdomen: normal Bowel Sounds Present, Soft, Non Tender, distension in the upper abdomen is much less today - - No guarding with palpation, non masses Extremities: No cyanosis, No edema, No Calf Tenderness Skin: No rashes Neurological: Cranial nerves II-XII grossly intact, Neuro grossly intact Psych/Mental Status: Normal Affect, Appropriate - Physical Exam Vital Signs Temp Pulse Resp BP Pulse Ox 97.6 F L 82 18 163/81 H 97 02/21/18 16:06 02/21/18 16:06 02/21/18 16:06 02/21/18 16:06 02/21/18 16:06 Oxygen Delivery Method Room Air Weight: 161 lb 2.526 oz Body Mass Index (BMI) 27.6 Intake and Output for Last 24 Hours 02/19/18 02/20/18 02/21/18 23:59 23:59 23:59 Intake Total 2215.7 / 2215.7 Balance 2215.7 / 2215.7 Microbiology Past 72 Hours 02/19/18 22:50 Enteric Bacteriology - Final Stool 02/19/18 22:50 C. difficile DNA Amplification - Final Stool Laboratory Tests Past 24 Hrs 02/21/18 02/21/18 06:00 06:00 WBC 8.7 RBC 3.79 L Hgb 9.8 L Hct 31.3 L MCV 82.6 MCH 25.9 L MCHC 31.3 L RDW 16.3 H RDW Differential 47.2 H Plt Count 325 MPV 8.8 Sodium 144 Potassium 3.7 Chloride 114 H Carbon Dioxide 23.0 Anion Gap 7 BUN 13 Creatinine 0.66 Estim Creat Clear Calc 40.04 Est GFR (MDRD) Af Amer 111 Est GFR (MDRD) Non-Af 92 BUN/Creatinine Ratio 19.7 Glucose 95 Calcium 8.0 L Phosphorus 1.8 L Magnesium 1.8 Medical Necessity - Tobacco Use Smoking Status: Former smoker Assessment/Plan Impressions 1. N/V/D at admission. Enteric pathogen panel and C. difficile are negative. Ova and parasites pending. 2. RA on prednisone 5 mg daily for many years 3. Crohn's disease 4. HTN 5. Dyslipidemia 6. Dehydration with hemoconcentration at admission with acute kidney injury 7. Hypophosphatemia 8. suspect she has dementia. Discussed with her dtr Nicky and she states she has been getting more forgetful.....has never had a W/U for treatable causes of dementia DC the IV fluids Advance the diet as tolerated Supplement phosphorus Decrease the prednisone to 40 mg daily Recheck lab in the a.m. Check a Hemoccult stool but suspect the drop in hemoglobin is due to hydration because she had TEJINDER and hemoconcentration at admission Check a TSH, ALPHONSO, B12, RPR ammonia and CTB....if this is all negative will recommend she follows up with neurology for treatment of suspected Alzheimer's Possible DC in the AM Code Visit Inpatient E&M: 83850 Subs Hosp L2
--- NOTE | 2018-02-21 19:30 | CT_ITS ---
STUDY: CT BRAIN WITHOUT CONTRAST REASON FOR EXAM: Female, 77 years old. Altered mental status RADIATION DOSAGE (If Supplied By Facility): CTDIvol = ( 44.99 ) mGy, DLP = ( 762.36 ) mGycm TECHNIQUE: Transaxial CT imaging of the brain was performed without administration of intravenous contrast material. Individualized dose optimization techniques were used for this CT. COMPARISON: None. FINDINGS: There is an old lacunar infarct in the left internal capsule. There is no acute bleed or infarct. There are chronic ischemic and atrophic changes. The ventricles are normal in configuration. There is no hydrocephalus. There is a small amount of fluid in the right maxillary sinus. The visualized paranasal sinuses are otherwise clear. The mastoid air cells are well aerated. There is no skull fracture. 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 No acute intracranial abnormality. Chronic ischemic and atrophic changes. Small amount of fluid in the right maxillary sinus. Electronically Signed: Giorgi Mg, at 21:07 EDT Tel , Service support ,
[2018-02-21 20:26] VITALS: BP 149/69; PULSE 54; RESP 18; TEMP 36.4; O2SAT 92
[2018-02-21 21:27] LABS: Thyroid Stim Hormone (TSH) 0.08 uIU/mL (0.358-3.74)
[2018-02-22 02:35] VITALS: BP 151/72; PULSE 45; RESP 18; TEMP 36.3; O2SAT 96
[2018-02-22 02:35] LABS: Rapid Plasmin Reagin (RPR) NONREACTIVE (NONREACTIVE)
[2018-02-22] MEDS: 0.9% Normal Saline 1,000 ML 100 ML IV (03:48)
[2018-02-22] MEDS: Menthol/Lanolin/Calamine/Znox 113 GM Tube 1 APPLIC TOPICAL (05:27)
[2018-02-22 07:19] LABS: Hematocrit 31.6 % (37-47); Mean Corp Hgb Conc 31.6 g/gl (32-36); Mean Corpuscular Hgb 26.1 pg (27.0-32.0); Mean Corpuscular Volume 82.5 fL (81-99); Mean Platelet Vol. 8.9 fl (6.2-12.0); Platelet Count 333 K/mm3 (150-450); RBC Distribution Width CV 16.5 % (11.6-14.6); RBC Distribution Width SD 48.4 fl (35.1-43.9); Red Blood Count 3.83 M/mm3 (4.2-5.4); White Blood Count 8.2 K/mm3 (4.4-11.0)
[2018-02-22 07:20] LABS: Scan Indicated on CBC? Y/N NO
[2018-02-22 07:48] LABS: T4 Free Direct 1.14 ng/dL (0.76-1.46)
[2018-02-22 07:49] LABS: Anion Gap 9 (5-15); BUN 13 mg/dL (7-18); BUN/Creat Ratio 20.6 RATIO (10-20); Calcium,Total 7.7 mg/dL (8.5-10.1); Chloride 114 mmol/L (98-107); Creatinine, Serum 0.63 mg/dL (0.55-1.02); EST Glomerular Filtration Rate 97 mL/min (>60); Est Glom Filt Rate - Afr Amer 117 mL/min (>60); Estimated Creatinine Clearance 40.04 ml/min; Glucose 83 mg/dL (74-106); Potassium 3.7 mmol/L (3.5-5.1); Sodium Level 147 mmol/L (136-145)
--- NOTE | 2018-02-22 09:24 | PCM.DC ---
You will use the following diet at home:: Other - BLAND DIET, NO CAFFEINE, LOW RESIDUE FOR THE NEXT WEEK AND THEN ADVANCE TOLERATED Your food should be the consistency of: Mechanical soft (ground) Your liquids should be the consistency of: Regular/Thin Discharge Activity: Return to Normal Activity Call your doctor if you observe: Fever of 101 or Higher, Inability to urinate, Inability to have a bowel movement, Shortness of breath, Dizziness, Fainting spells, Swelling in the ankles, Chest pain, Uncontrolled pain Allergies/Adverse Reactions: Allergies atorvastatin Allergy (Severe, Verified 02/19/18 17:28) Unknown rosuvastatin calcium [From Crestor] Allergy (Verified 02/19/18 17:28) Unknown prednisone Adverse Reaction (Severe, Verified 02/19/18 17:28) mental status change Medications to take at Discharge Hydrocodone Bitart/Apap 5-325 [[place] 5/325] 1 tab PO Q6H PRN PRN #20 tab 11/14/14 Fluoxetine [Prozac] 10 mg PO DAILY 11/16/14 Lisinopril [Zestril] 20 mg PO DAILY 11/16/14 diphenoxylate-atropine 2.5 mg-0.025 mg tablet 1 tab PO .QID PRN tab 11/28/17 Spironolactone [Aldactone] 25 mg PO DAILY 02/19/18 Donepezil HCl [Aricept] 5 mg PO QHS #30 tab 02/22/18 Prednisone 10 mg PO UD #30 tablet 02/22/18 The following prescriptions were given: Donepezil HCl [Aricept] 5 mg PO QHS #30 tab Prednisone 10 mg PO UD #30 tablet Primary Care Physician: Jorgito Gutierres III, MD [Primary Care Provider] - Please follow up with your Primary Care Physician in: 7-10 days
--- NOTE | 2018-02-22 09:29 | DCINST_ITS ---
You will use the following diet at home:: Other - BLAND DIET, NO CAFFEINE, LOW RESIDUE FOR THE NEXT WEEK AND THEN ADVANCE TOLERATED Your food should be the consistency of: Mechanical soft (ground) Your liquids should be the consistency of: Regular/Thin Discharge Activity: Return to Normal Activity Call your doctor if you observe: Fever of 101 or Higher, Inability to urinate, Inability to have a bowel movement, Shortness of breath, Dizziness, Fainting spells, Swelling in the ankles, Chest pain, Uncontrolled pain Allergies/Adverse Reactions: Allergies atorvastatin Allergy (Severe, Verified 02/19/18 17:28) Unknown rosuvastatin calcium [From Crestor] Allergy (Verified 02/19/18 17:28) Unknown prednisone Adverse Reaction (Severe, Verified 02/19/18 17:28) mental status change Medications to take at Discharge Hydrocodone Bitart/Apap 5-325 [[place] 5/325] 1 tab PO Q6H PRN PRN #20 tab Fluoxetine [Prozac] 10 mg PO DAILY 11/16/14 Lisinopril [Zestril] 20 mg PO DAILY 11/16/14 diphenoxylate-atropine 2.5 mg-0.025 mg tablet 1 tab PO .QID PRN tab 11/28/17 Spironolactone [Aldactone] 25 mg PO DAILY 02/19/18 Donepezil HCl [Aricept] 5 mg PO QHS #30 tab 02/22/18 Prednisone 10 mg PO UD #30 tablet 02/22/18 The following prescriptions were given: Donepezil HCl [Aricept] 5 mg PO QHS #30 tab Prednisone 10 mg PO UD #30 tablet Primary Care Physician: Jorgito Gutierres III, MD [Primary Care Provider] - Please follow up with your Primary Care Physician in: 7-10 days
--- NOTE | 2018-02-22 09:29 | PCM.DC.SUM ---
Discharge Date and Diagnosis Date of Admission: 02/19/18 Date of Discharge: 02/22/18 - Primary Discharge Diagnosis Active and Suspected Problems (Last Reviewed 12/31/17 @ 10:27 by BLANE Richard) Acute exacerbation Crohn's disease Alzheimer's dementia (Suspected) Hypophosphatemia (Acute) - Secondary Discharge Diagnosis Chronic Problems (Last Reviewed 12/31/17 @ 10:27 by BLANE Richard) PND (post-nasal drip) (Chronic) Stage 2 moderate COPD by GOLD classification (Chronic) FEV1 52% of predicted Tobacco dependence in remission (Chronic) Chronic cough (Chronic) Crohns disease (Chronic) Rheumatoid arthritis (Chronic) Immunosuppressed status (Chronic) on etanercept and Prednisone HTN (hypertension) (Chronic) Dyslipidemia (Chronic) Hospital Course and Treatment Imaging Results: Clinical Impression(s) from Imaging Studies Abdomen/Pelvis CT 02/19/18 17:51 IMPRESSION: Mild gallbladder wall thickening. Punctate nonobstructive right renal stone. Left renal cyst. Wall thickening of the terminal ileum with mild adjacent mesenteric stranding. This may be related to patient's history of Crohn's disease. Fluid colonic content with air-fluid levels. Focal dilatation of the proximal abdominal aorta. Electronically Signed: Kwan Escobar DO at 20:58 EDT Tel [phone], Service support , Chest X-Ray 02/19/18 18:00 IMPRESSION: Minimal right basilar atelectasis. 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 No acute intracranial abnormality. Chronic ischemic and atrophic changes. Small amount of fluid in the right maxillary sinus. Electronically Signed: Giorgi Mg, at 21:07 EDT Tel , Service support , Laboratory Tests 02/19/18 02/19/18 02/19/18 17:35 17:35 20:19 WBC 8.7 RBC 4.71 Hgb 12.1 Hct 38.8 MCV 82.4 MCH 25.7 L MCHC 31.2 L RDW 16.2 H RDW Differential 49.2 H Plt Count 372 MPV 8.6 Immature Gran % (Auto) 0.100 Neut % (Auto) 67.9 Lymph % (Auto) 24.4 Traill % (Auto) 6.7 Eos % (Auto) 0.7 Baso % (Auto) 0.2 Absolute Neuts (auto) 5.9 Absolute Lymphs (auto) 2.12 Total Counted Not Reportable Sodium 138 Potassium 4.2 Chloride 108 H Carbon Dioxide 23.0 Anion Gap 7 BUN 50 H Creatinine 1.65 H Estim Creat Clear Calc 24.27 Est GFR (MDRD) Af Amer 39 L Est GFR (MDRD) Non-Af 32 L BUN/Creatinine Ratio 30.3 H Glucose 126 H Calcium 8.5 Phosphorus Magnesium Total Bilirubin 0.40 AST 60 H ALT 37 Alkaline Phosphatase 68 Ammonia Total Protein 8.3 H Albumin 3.1 L Globulin 5.2 H Albumin/Globulin Ratio 0.6 L Lipase 196 TSH Free T4 Urine Color Yellow Urine Clarity Clear Urine pH 5.0 Ur Specific [place]e 1.015 Urine Protein 15 H Urine Glucose (UA) Normal Urine Ketones Negative Urine Occult Blood Negative Urine Nitrite Negative Urine Bilirubin Negative Urine Urobilinogen Normal Ur Leukocyte Esterase Negative Urine RBC 0 SEEN Urine WBC 0 SEEN Ur Squamous Epith Cells 0 SEEN Urine Bacteria 0 SEEN Hyaline Casts 0-5 SEEN Urine Mucus 0 SEEN RPR 02/20/18 02/20/18 02/21/18 05:55 05:55 06:00 WBC 8.0 8.7 RBC 4.43 3.79 L Hgb 11.7 L 9.8 L Hct 36.4 L 31.3 L MCV 82.2 82.6 MCH 26.4 L 25.9 L MCHC 32.1 31.3 L RDW 16.3 H 16.3 H RDW Differential 48.0 H 47.2 H Plt Count 342 325 MPV 8.9 8.8 Immature Gran % (Auto) 0.200 Neut % (Auto) 85.3 H Lymph % (Auto) 13.2 L Traill % (Auto) 1.2 Eos % (Auto) 0.0 Baso % (Auto) 0.1 Absolute Neuts (auto) 6.9 Absolute Lymphs (auto) 1.06 Total Counted Not Reportable Sodium 140 Potassium 4.2 Chloride 112 H Carbon Dioxide 19.0 L Anion Gap 9 BUN 31 H Creatinine 0.87 Estim Creat Clear Calc 46.02 Est GFR (MDRD) Af Amer 81 Est GFR (MDRD) Non-Af 67 BUN/Creatinine Ratio 35.5 H Glucose 146 H Calcium 8.1 L Phosphorus Magnesium Total Bilirubin 0.40 AST 31 ALT 32 Alkaline Phosphatase 64 Ammonia Total Protein 7.1 Albumin 2.7 L Globulin 4.4 H Albumin/Globulin Ratio 0.6 L Lipase TSH Free T4 Urine Color Urine Clarity Urine pH Ur Specific [place] Urine Protein Urine Glucose (UA) Urine Ketones Urine Occult Blood Urine Nitrite Urine Bilirubin Urine Urobilinogen Ur Leukocyte Esterase Urine RBC Urine WBC Ur Squamous Epith Cells Urine Bacteria Hyaline Casts Urine Mucus RPR 02/21/18 02/21/18 02/21/18 06:00 20:44 20:44 WBC RBC Hgb Hct MCV MCH MCHC RDW RDW Differential Plt Count MPV Immature Gran % (Auto) Neut % (Auto) Lymph % (Auto) Traill % (Auto) Eos % (Auto) Baso % (Auto) Absolute Neuts (auto) Absolute Lymphs (auto) Total Counted Sodium 144 Potassium 3.7 Chloride 114 H Carbon Dioxide 23.0 Anion Gap 7 BUN 13 Creatinine 0.66 Estim Creat Clear Calc 40.04 Est GFR (MDRD) Af Amer 111 Est GFR (MDRD) Non-Af 92 BUN/Creatinine Ratio 19.7 Glucose 95 Calcium 8.0 L Phosphorus 1.8 L Magnesium 1.8 Total Bilirubin AST ALT Alkaline Phosphatase Ammonia 29.0 Total Protein Albumin Globulin Albumin/Globulin Ratio Lipase TSH 0.08 L Free T4 Urine Color Urine Clarity Urine pH Ur Specific [place] Urine Protein Urine Glucose (UA) Urine Ketones Urine Occult Blood Urine Nitrite Urine Bilirubin Urine Urobilinogen Ur Leukocyte Esterase Urine RBC Urine WBC Ur Squamous Epith Cells Urine Bacteria Hyaline Casts Urine Mucus RPR 02/21/18 02/22/18 02/22/18 20:44 06:57 06:57 WBC 8.2 RBC 3.83 L Hgb 10.0 L Hct 31.6 L MCV 82.5 MCH 26.1 L MCHC 31.6 L RDW 16.5 H RDW Differential 48.4 H Plt Count 333 MPV 8.9 Immature Gran % (Auto) Neut % (Auto) Lymph % (Auto) Traill % (Auto) Eos % (Auto) Baso % (Auto) Absolute Neuts (auto) Absolute Lymphs (auto) Total Counted Sodium 147 H Potassium 3.7 Chloride 114 H Carbon Dioxide 24.0 Anion Gap 9 BUN 13 Creatinine 0.63 Estim Creat Clear Calc 40.04 Est GFR (MDRD) Af Amer 117 Est GFR (MDRD) Non-Af 97 BUN/Creatinine Ratio 20.6 H Glucose 83 Calcium 7.7 L Phosphorus 3.0 Magnesium Total Bilirubin AST ALT Alkaline Phosphatase Ammonia Total Protein Albumin Globulin Albumin/Globulin Ratio Lipase TSH Free T4 Urine Color Urine Clarity Urine pH Ur Specific [place] Urine Protein Urine Glucose (UA) Urine Ketones Urine Occult Blood Urine Nitrite Urine Bilirubin Urine Urobilinogen Ur Leukocyte Esterase Urine RBC Urine WBC Ur Squamous Epith Cells Urine Bacteria Hyaline Casts Urine Mucus RPR NONREACTIVE 02/22/18 06:57 WBC RBC Hgb Hct MCV MCH MCHC RDW RDW Differential Plt Count MPV Immature Gran % (Auto) Neut % (Auto) Lymph % (Auto) Traill % (Auto) Eos % (Auto) Baso % (Auto) Absolute Neuts (auto) Absolute Lymphs (auto) Total Counted Sodium Potassium Chloride Carbon Dioxide Anion Gap BUN Creatinine Estim Creat Clear Calc Est GFR (MDRD) Af Amer Est GFR (MDRD) Non-Af BUN/Creatinine Ratio Glucose Calcium Phosphorus Magnesium Total Bilirubin AST ALT Alkaline Phosphatase Ammonia Total Protein Albumin Globulin Albumin/Globulin Ratio Lipase TSH Free T4 1.14 Urine Color Urine Clarity Urine pH Ur Specific [place] Urine Protein Urine Glucose (UA) Urine Ketones Urine Occult Blood Urine Nitrite Urine Bilirubin Urine Urobilinogen Ur Leukocyte Esterase Urine RBC Urine WBC Ur Squamous Epith Cells Urine Bacteria Hyaline Casts Urine Mucus RPR none Operations: None Procedures: None Summary of Care Provided: Patient is a 77-year-old female with a past medical history of moderate COPD, rheumatoid arthritis, Crohn's disease, hypertension and dyslipidemia who presented to the emergency room at [facility] on 02/19/2018 complaining of abdominal pain associated with diarrhea, N/V. Due to Crohn's disease she normally has 6-8 bowel movements daily but had much more prior to admission. Oral intake had been decreased for the preceding couple days. She denied fever or chills. Vital signs at presentation to the emergency room were pulse rate 81, blood pressure 125/61, respiratory rate 16 and she was 99% saturated on room air. White blood cell count was normal at 8.7 with an unremarkable differential. Hemoglobin and platelets are within normal limits. Electrolytes were unremarkable but the BUN was 50 and the creatinine was 1.65. CT scan of the abdomen and pelvis showed mild gallbladder wall thickening and punctate nonobstructive stones in the right kidney. There was a left renal cyst and there was wall thickening of the terminal ileum with mild adjacent mesenteric stranding. There was fluid colonic content with air-fluid levels. There was a focal dilatation of the proximal abdominal aorta measuring 3.3 cm. She was admitted to the hospital with a diagnosis of acute exacerbation of Crohn's disease and started on prednisone 60 mg p.o. daily. Enteric pathogen panel and C. Diff are negative. Ova and parasites were also negative. IV fluids were given and the creat at DC was 0.63. Diarrhea improved and so did her appetite and intake. The diet was advanced as tolerated. On 02/22/2018 she was alert, cooperative and appeared to be in no acute distress. The lungs are clear to auscultation and the heart had a regular rate and rhythm. Bowel sounds were present in the abdomen was soft, nontender and the upper abdominal distension present at admission had resolved. She was discharged home on a prednisone taper and will follow up with Dr. Jorgito Gutierres iii in 7-10 days. She was also given a prescription for Aricept 5 mg and instructed to take 1 p.o. nightly. I spoke with her daughter Nicky who is her primary caregiver and she related that the patient has been getting progressively more forgetful, especially over the past 6 months. I encouraged them to follow up with Dr. Prado or Dr. Zimmerman to be evaluated for Alzheimer's. TSH, RPR and B12 were WNL. A CT brain showed no indication of NPH and ALPHONSO is still pending at the time of discharge. This note was generated with [employer] dictation software. It may contain incorrect words, spelling, and punctuation that were not noted in checking the note before signing. Discharge Activity: Return to Normal Activity Call your doctor if you observe: Fever of 101 or Higher, Inability to urinate, Inability to have a bowel movement, Shortness of breath, Dizziness, Fainting spells, Swelling in the ankles, Chest pain, Uncontrolled pain Home Medications: Medications to take at Discharge Hydrocodone Bitart/Apap 5-325 [Poplar 5/325] 1 tab PO Q6H PRN PRN #20 tab 11/14/14 Fluoxetine [Prozac] 10 mg PO DAILY 11/16/14 Lisinopril [Zestril] 20 mg PO DAILY 11/16/14 diphenoxylate-atropine 2.5 mg-0.025 mg tablet 1 tab PO .QID PRN tab 11/28/17 Spironolactone [Aldactone] 25 mg PO DAILY 02/19/18 Donepezil HCl [Aricept] 5 mg PO QHS #30 tab 02/22/18 Prednisone 10 mg PO UD #30 tablet 02/22/18 Following Prescrptions Were Given to Patient: Donepezil HCl [Aricept] 5 mg PO QHS #30 tab Prednisone 10 mg PO UD #30 tablet Primary Care Physician: Jorgito Gutierres III, MD [Primary Care Provider] - Please follow up with your Primary Care Physician in: 7-10 days Disposition: Home Minutes spent on discharge:: 35 Patient Condition:: Good Medical Necessity - Tobacco Use Smoking Status: Former smoker Meaningful Use Info Meaningful Use Diagnoses (Choose all that apply): None applicable Code Visit Inpatient E&M: 74616 Disch Hosp
[2018-02-22] MEDS: predniSONE 20 MG Tablet 40 MG PO (10:14)
[2018-02-22] MEDS: Lisinopril 20 MG Tablet PO (10:15)
[2018-02-22] MEDS: FLUoxetine 10 MG Capsule PO (10:15)
--- NOTE | 2018-02-22 10:25 | CASEMGMT ---
Social Work Note SW completed Healthcare POA with pt and pt's daughter. This worker and Luanne, confidential secretary witness pt's signature and signed required document. Plan: Pt will be discharging home Lisa CHERY, ASSISTANT CONTROLLER
[2018-02-22 12:00] LABS: Vitamin B12 150 pg/mL (211-911)
[2018-02-26 11:16] LABS: ANTINUCLEAR ANTIBODIES DIRECT Negative (Negative)
== END 2018-02-22 11:07 | disposition home or self-care (01) | DRG 386 ==
LOC: ED 19:25 → MS3 21:41
PROVIDERS: Admitting Provider Hospitalist; Emergency Provider Emergency Medicine; Family Provider Family Medicine; PCP Family Medicine; Visit Provider Internal Medicine
DX: K50.90 Crohn's disease, unspecified, without complications (principal); N17.9 Acute kidney failure, unspecified; E86.0 Dehydration; E83.39 Other disorders of phosphorus metabolism; G30.9 Alzheimer's disease, unspecified; F02.80 Dementia in other diseases classified elsewhere, unspecified severity, without behavioral disturbance, psychotic disturbance, mood disturbance, and anxiety; J44.9 Chronic obstructive pulmonary disease, unspecified; M06.9 Rheumatoid arthritis, unspecified; I10 Essential (primary) hypertension; E78.5 Hyperlipidemia, unspecified; F32.9 Major depressive disorder, single episode, unspecified; Z79.52 Long term (current) use of systemic steroids; Z79.899 Other long term (current) drug therapy; Z87.891 Personal history of nicotine dependence
CPT/HCPCS: 36415; 70450; 71045; 74177; 80048; 80053; 81001; 82140; 82607; 83690; 83735; 84100; 84439; 84443; 85025; 85027; 86038; 86225; 86235; 86592; 87177; 87209; 87493; 87506; 92526; 93005; 97110; 97162; 97165; 97530; 99285; J7030; J7050; Q9967; A4216; J2405

== ENCOUNTER 2018-03-18 14:20 | Outpatient (RCR) | payer MEDICARE, OTHER, SELFPAY ==
[2018-03-18 15:05] LABS: Absolute Lymphocyte Count 2.83 X10^3/ul (0.83-4.51); Absolute Neutrophil Count 7.6 X10^3/uL (2.0-7.7); Basophil# 0.05 X10^3/uL; Basophil% 0.4 % (0-1); Eosinophil# 0.25 X10^3/uL; Eosinophils% 2.1 % (0-5); Hematocrit 41.7 % (37-47); Lymphocyte # 2.83 X10^3/ul (4.0); Lymphocyte % 24.2 % (19-41); Mean Corp Hgb Conc 31.2 g/gl (32-36); Mean Corpuscular Hgb 25.9 pg (27.0-32.0); Mean Corpuscular Volume 83.2 fL (81-99); Mean Platelet Vol. 9.6 fl (6.2-12.0); Monocyte% 7.7 % (0-10); Neutrophil # 7.64 X10^3/uL (2.7-7.7); Neutrophil % 65.3 % (47-70); Platelet Count 491 K/mm3 (150-450); RBC Distribution Width CV 16.9 % (11.6-14.6); RBC Distribution Width SD 51.2 fl (35.1-43.9); Red Blood Count 5.01 M/mm3 (4.2-5.4); White Blood Count 11.7 K/mm3 (4.4-11.0)
[2018-03-18 15:07] LABS: POSITIVE COUNT NO; POSITIVE DIFFERENTIAL NO; POSITIVE MORPHOLOGY NO
[2018-03-18 15:13] LABS: ALB/GLOB Ratio 0.7 RATIO (0.9-2.4); AST(SGOT) 22 U/L (15-37); Alanine Aminotransfer ALT/SGPT 27 U/L (13-56); Albumin, Serum 3.2 g/dL (3.2-5.0); Alkaline Phosphatase 75 U/L (45-117); Anion Gap 9 (5-15); BUN 44 mg/dL (7-18); BUN/Creat Ratio 24.2 RATIO (10-20); Chloride 106 mmol/L (98-107); Creatinine, Serum 1.82 mg/dL (0.55-1.02); EST Glomerular Filtration Rate 29 mL/min (>60); Est Glom Filt Rate - Afr Amer 35 mL/min (>60); Globulin 4.9 g/dL (2.2-4.2); Glucose 137 mg/dL (74-106); Potassium 4.1 mmol/L (3.5-5.1); Protein, Total 8.1 g/dL (6.4-8.2); Sodium Level 139 mmol/L (136-145)
== END 2018-03-18 23:59 ==
LOC: HHLAB 14:20
PROVIDERS: Family Provider Family Medicine; PCP Family Medicine; Visit Provider Family Medicine
DX: K50.90 Crohn's disease, unspecified, without complications (principal); J44.9 Chronic obstructive pulmonary disease, unspecified; M06.9 Rheumatoid arthritis, unspecified
CPT/HCPCS: 80053; 85025

== ENCOUNTER 2018-03-19 22:25 | Emergency (ER) | payer MEDICARE, OTHER, MEDICAID, SELFPAY ==
[2018-03-19 22:27] VITALS: BP 121/58; PULSE 87; RESP 16; TEMP 36.7; O2SAT 98; BMI 26.5
[2018-03-19] MEDS: 0.9% Normal Saline 1,000 ML 1000 ML IV (22:45)
[2018-03-19 22:54] LABS: Absolute Lymphocyte Count 3.72 X10^3/ul (0.83-4.51); Absolute Neutrophil Count 7.9 X10^3/uL (2.0-7.7); Basophil# 0.03 X10^3/uL; Basophil% 0.2 % (0-1); Eosinophil# 0.16 X10^3/uL; Eosinophils% 1.3 % (0-5); Hematocrit 41.2 % (37-47); Hemoglobin 13.2 g/dl (12.0-15.0); Lymphocyte # 3.72 X10^3/ul (4.0); Lymphocyte % 29.1 % (19-41); Mean Corpuscular Hgb 26.3 pg (27.0-32.0); Mean Corpuscular Volume 82.1 fL (81-99); Monocyte# 0.94 X10^3/uL; Monocyte% 7.4 % (0-10); Neutrophil % 61.8 % (47-70); POSITIVE COUNT NO; POSITIVE DIFFERENTIAL NO; POSITIVE MORPHOLOGY NO; Platelet Count 427 K/mm3 (150-450); RBC Distribution Width CV 16.3 % (11.6-14.6); RBC Distribution Width SD 49.4 fl (35.1-43.9); Red Blood Count 5.02 M/mm3 (4.2-5.4); White Blood Count 12.8 K/mm3 (4.4-11.0)
[2018-03-19 23:06] LABS: ALB/GLOB Ratio 0.6 RATIO (0.9-2.4); AST(SGOT) 21 U/L (15-37); Alanine Aminotransfer ALT/SGPT 31 U/L (13-56); Albumin, Serum 3.2 g/dL (3.2-5.0); Alkaline Phosphatase 85 U/L (45-117); Anion Gap 9 (5-15); BUN 34 mg/dL (7-18); BUN/Creat Ratio 35.6 RATIO (10-20); Calcium,Total 8.8 mg/dL (8.5-10.1); Chloride 106 mmol/L (98-107); Creatinine, Serum 0.96 mg/dL (0.55-1.02); EST Glomerular Filtration Rate 60 mL/min (>60); Est Glom Filt Rate - Afr Amer 73 mL/min (>60); Estimated Creatinine Clearance 43.46 ml/min; Glucose 115 mg/dL (74-106); Lipase 212 U/L (73-393); Potassium 4.2 mmol/L (3.5-5.1); Protein, Total 8.2 g/dL (6.4-8.2); Sodium Level 136 mmol/L (136-145)
--- NOTE | 2018-03-19 23:58 | ED.VISSUMM ---
- ER Visit Summary Date of Service: 03/19/18 Chief Complaint: Dehydration History of Present Illness: The patient is a 77 F presenting for evaluation due to concern for dehydration. Patient has an underlying history of Crohn's disease. She has been dealing with an exacerbation of the course of the last month. Patient was actually admitted to the hospital secondary to exacerbation and dehydration last month, and finished a prednisone taper as an outpatient. Patient states that she was having 4-5 loose stools per day, she has had decrease in that number to 2-3 per day. Patient had one episode of nonbloody nonbilious emesis yesterday. She reports that she has crampy intermittent abdominal pain that is worse in the lower quadrants and is associated with worsening with bowel movements. Patient had outpatient labs drawn by her PCP yesterday was noted to have a creatinine of 1.8 when her baseline is less than 1 she was recommended to come to the emergency department for fluids. Patient denies any fevers. Review of systems otherwise negative. Physical Examination: Vital signs are within normal limits, patient is afebrile. General: Patient is well-nourished well-developed and in no acute distress. Head: Normocephalic, atraumatic Eyes: Pupils equal round and reactive bilaterally, extra occular motion intact bialterally ENT: Moist mucous membranes Neck: Supple, no lymphadenopathy, no JVD, no meningismus CVS: Heart regular rate and rhythm, no murmurs, rubs or gallops, radial pulses 2+ bilaterally Resp: Respirations nondistressed, lung sounds clear bilaterally Abdomen: Soft, diffuse nonlocalizing tenderness to palpation, Garcia sign negative, no guarding no rebound,, nondistended, no palpable masses, normal bowel sounds Back: Nontender Extremities: Nontender, atraumatic, active full range of motion, no peripheral edema Skin: warm, no rashes, no petechia Neuro: Alert and oriented x 4, CN 2-12 intact, no lateralizing neurological defecits Psyc: Normal affect Test Results: CBC shows leukocytosis of 12.8, chemistry actually shows BUN and creatinine of 34 and 0.96, liver and lipase negative Emergency Department Course and Treatment: Patient presented due to concern for dehydration. Patient was given a liter normal saline. Laboratory studies were repeated, patient now has a BUN of 34 and a creatinine of 0.96. I do not believe the patient is an acute kidney injury or significant dehydration. Her abdomen is relatively benign. I do not believe that imaging is indicated, patient wishes to go home I believe that this is the appropriate disposition. Patient will be discharged home with continued conservative management follow-up with primary care. Disposition: Discharge Impression: 1. Dehydration, resolved 2. History of Crohn's disease This note was generated with [employer] dictation software. It may contain incorrect words, spelling, and punctuation that were not noted in review of the chart prior to signing ED Disposition - Plan for ED Patient: Disposition: Home or Assisted Living Chief Complaint: Abd Pain Diagnosis: Dehydration Instructions: ED Dehydration Referrals: Jorgito Gutierres III, MD [Primary Care Provider] - As Needed
--- NOTE | 2018-03-20 00:01 | ED.DCSUM_ITS ---
- ER Visit Summary Date of Service: 03/19/18 Chief Complaint: Dehydration History of Present Illness: The patient is a 77 F presenting for evaluation due to concern for dehydration. Patient has an underlying history of Crohn's disease. She has been dealing with an exacerbation of the course of the last month. Patient was actually admitted to the hospital secondary to exacerbation and dehydration last month, and finished a prednisone taper as an outpatient. Patient states that she was having 4-5 loose stools per day, she has had decrease in that number to 2-3 per day. Patient had one episode of nonbloody nonbilious emesis yesterday. She reports that she has crampy intermittent abdominal pain that is worse in the lower quadrants and is associated with worsening with bowel movements. Patient had outpatient labs drawn by her PCP yesterday was noted to have a creatinine of 1.8 when her baseline is less than 1 she was recommended to come to the emergency department for fluids. Patient denies any fevers. Review of systems otherwise negative. Physical Examination: Vital signs are within normal limits, patient is afebrile. General: Patient is well-nourished well-developed and in no acute distress. Head: Normocephalic, atraumatic Eyes: Pupils equal round and reactive bilaterally, extra occular motion intact bialterally ENT: Moist mucous membranes Neck: Supple, no lymphadenopathy, no JVD, no meningismus CVS: Heart regular rate and rhythm, no murmurs, rubs or gallops, radial pulses 2 + bilaterally Resp: Respirations nondistressed, lung sounds clear bilaterally Abdomen: Soft, diffuse nonlocalizing tenderness to palpation, Garcia sign negative, no guarding no rebound,, nondistended, no palpable masses, normal bowel sounds Back: Nontender Extremities: Nontender, atraumatic, active full range of motion, no peripheral edema Skin: warm, no rashes, no petechia Neuro: Alert and oriented x 4, CN 2-12 intact, no lateralizing neurological defecits Psyc: Normal affect Test Results: CBC shows leukocytosis of 12.8, chemistry actually shows BUN and creatinine of 34 and 0.96, liver and lipase negative Emergency Department Course and Treatment: Patient presented due to concern for dehydration. Patient was given a liter normal saline. Laboratory studies were repeated, patient now has a BUN of 34 and a creatinine of 0.96. I do not believe the patient is an acute kidney injury or significant dehydration. Her abdomen is relatively benign. I do not believe that imaging is indicated, patient wishes to go home I believe that this is the appropriate disposition. Patient will be discharged home with continued conservative management follow- up with primary care. Disposition: Discharge Impression: 1. Dehydration, resolved 2. History of Crohn's disease This note was generated with [employer] dictation software. It may contain incorrect words, spelling, and punctuation that were not noted in review of the chart prior to signing ED Disposition - Plan for ED Patient: Disposition: Home or Assisted Living Chief Complaint: Abd Pain Diagnosis: Dehydration Instructions: ED Dehydration Referrals: Jorgito Gutierres III, MD [Primary Care Provider] - As Needed
[2018-03-20 00:15] VITALS: BP 132/73; PULSE 85; RESP 16; O2SAT 100
== END 2018-03-20 00:16 | disposition home or self-care (01) ==
PROVIDERS: Emergency Provider Emergency Medicine; Family Provider Family Medicine; PCP Family Medicine
DX: E86.0 Dehydration (principal); K50.90 Crohn's disease, unspecified, without complications; F03.90 Unspecified dementia, unspecified severity, without behavioral disturbance, psychotic disturbance, mood disturbance, and anxiety; Z79.899 Other long term (current) drug therapy; Z79.52 Long term (current) use of systemic steroids
CPT/HCPCS: 80053; 83690; 85025; 96360; 96361; 99284; J7030

== ENCOUNTER 2018-06-18 12:58 | Emergency (ER) | payer MEDICARE, OTHER, MEDICAID, SELFPAY ==
[2018-06-18 12:59] VITALS: BP 169/79; PULSE 80; RESP 18; TEMP 36.6; O2SAT 94; BMI 26.6
--- NOTE | 2018-06-18 13:14 | RAD_ITS ---
STUDY: X-RAY CHEST REASON FOR EXAM: Female, 77 years old. One-week history of cough and increased weakness. TECHNIQUE: Single AP portable view of the chest. COMPARISON: Comparison is made with prior study dated February 19, 2018. FINDINGS: EKG electrodes are seen. Hyperinflation. Scattered calcified granulomas. The lungs are clear. There is no demonstrated pleural abnormality. Normal size heart. Normal mediastinum and coby. Normal visualized pulmonary arteries. There is atherosclerotic calcification of the aortic arch with tortuosity. Normal visualized thoracic spine. Normal visualized ribs, clavicles, and shoulders. There is no demonstrated abnormality of the visualized soft tissue structures of the upper abdomen. RAD/Chest 1 View (Portable) IMPRESSION: Hyperinflation. No acute abnormality is seen. Electronically Signed: Joaquim Daigle MD at 13:33 EDT Tel [phone], Service support ,
--- NOTE | 2018-06-18 13:14 | EKG12_ITS ---
Test Reason : WEAKNESS Blood Pressure : / mmHG Vent. Rate : 066 BPM Atrial Rate : 066 BPM P-R Int : 172 ms QRS Dur : 078 ms QT Int : 454 ms P-R-T Axes : 061 023 051 degrees QTc Int : 475 ms Normal sinus rhythm Normal ECG Confirmed by BRENTON JEFFERS, LILIA ([id number]), editor index BOBBI JONES ([id number]) on 06/20/2018 11:34:13 AM Referred By: JOHNIE Confirmed By:LILIA FARRIS MD
[2018-06-18 13:45] LABS: Absolute Lymphocyte Count 1.99 X10^3/ul (0.83-4.51); Absolute Neutrophil Count 4.6 X10^3/uL (2.0-7.7); Basophil# 0.02 X10^3/uL; Basophil% 0.3 % (0-1); Eosinophil# 0.21 X10^3/uL; Eosinophils% 2.8 % (0-5); Hematocrit 37.3 % (37-47); Hemoglobin 11.4 g/dl (12.0-15.0); Lymphocyte # 1.99 X10^3/ul (4.0); Lymphocyte % 26.9 % (19-41); Mean Corp Hgb Conc 30.6 g/gl (32-36); Mean Corpuscular Hgb 24.2 pg (27.0-32.0); Mean Corpuscular Volume 79.2 fL (81-99); Mean Platelet Vol. 8.9 fl (6.2-12.0); Monocyte# 0.57 X10^3/uL; Monocyte% 7.7 % (0-10); Neutrophil # 4.62 X10^3/uL (2.7-7.7); Neutrophil % 62.3 % (47-70); Platelet Count 375 K/mm3 (150-450); RBC Distribution Width CV 14.7 % (11.6-14.6); RBC Distribution Width SD 42.1 fl (35.1-43.9); Red Blood Count 4.71 M/mm3 (4.2-5.4); White Blood Count 7.4 K/mm3 (4.4-11.0)
[2018-06-18 13:46] LABS: POSITIVE COUNT NO; POSITIVE DIFFERENTIAL NO; POSITIVE MORPHOLOGY NO
[2018-06-18 14:00] LABS: ALB/GLOB Ratio 0.6 RATIO (0.9-2.4); AST(SGOT) 21 U/L (15-37); Alanine Aminotransfer ALT/SGPT 20 U/L (13-56); Albumin, Serum 2.8 g/dL (3.2-5.0); Alkaline Phosphatase 57 U/L (45-117); Anion Gap 8 (5-15); BUN 11 mg/dL (7-18); BUN/Creat Ratio 13.6 RATIO (10-20); Calcium,Total 8.7 mg/dL (8.5-10.1); Chloride 102 mmol/L (98-107); Creatinine, Serum 0.81 mg/dL (0.55-1.02); EST Glomerular Filtration Rate 73 mL/min (>60); Est Glom Filt Rate - Afr Amer 88 mL/min (>60); Estimated Creatinine Clearance 51.51 ml/min; Glucose 186 mg/dL (74-106); Potassium 3.3 mmol/L (3.5-5.1); Protein, Total 7.8 g/dL (6.4-8.2); Sodium Level 142 mmol/L (136-145)
--- NOTE | 2018-06-18 14:08 | ED.VISSUMM ---
- ER Visit Summary Date of Service: 06/18/18 Chief Complaint: Weakness History of Present Illness: The patient is a 77 F who states that she is felt weak for the past 1 week. She states that she feels dizzy and lightheaded at times. She states the symptoms are increased when she ambulates. She denies a fever, abdominal pain, chest pain. She does have a slight cough. She normally uses a walker to ambulate at home. She states that she has some palliative care for rheumatoid arthritis. She is not sure if she has a DNR order Physical Examination: Vital signs reviewed. HEENT exam unremarkable. Heart is regular rate and rhythm without murmurs. Lungs are clear to auscultation. Abdomen is soft and nontender. Extremities reveal no edema. There are changes of rheumatoid arthritis in the hands. Skin exam normal. Neurologic exam reveals diffuse overall weakness with nothing lateralizing. Test Results: Laboratory studies are normal except for hemoglobin 11.4 and a potassium 3.3. Urinalysis is negative for infection. EKG is sinus rhythm with a rate of 66. No ST changes. Chest x-ray reveals chronic changes. Emergency Department Course and Treatment: Patient was given IV fluids. She states she feels a little bit improved. This does not sound vertiginous. I am unclear the etiology of her weakness. However, I do not feel she requires admission to the hospital. He does not appear to be dehydrated. No signs of infection. She is currently in palliative care for this rheumatoid arthritis. She lives with her daughter. I feel that she can be discharged home and she will call her PCP for follow-up Treatment Plan: [] Disposition: Discharge Impression: Lightheadedness, generalized weakness This note was generated with [employer] dictation software. It may contain incorrect words, spelling, and punctuation that were not noted in review of the chart prior to signing ED Disposition - Plan for ED Patient: Chief Complaint: Weakness Referrals: Jorgito Gutierres III, MD [Primary Care Provider] -
[2018-06-18 14:52] LABS: Bacteria 0 SEEN /hpf (None Seen); Mucous, Urine 0 SEEN /hpf (<or=2+); Red Blood Cells-Urine 0 SEEN /hpf (0-5); Squamous Epithelial Cells - UA 0 SEEN /hpf (5-10)
[2018-06-18 15:25] VITALS: BP 184/86; PULSE 65; RESP 13; O2SAT 98
[2018-06-18 15:30] LABS: Color, Urine Yellow (Yellow); Glucose, Dipstick Normal (Normal); Ketone-Dipstick 5 mg/dl (Negative); Leukocyte Esterase-Dipstick 25 /ul (Negative); Nitrite-Dipstick Negative (Negative); Occult Blood-Urine Negative /ul (Negative); Protein-Dipstick 30 mg/dl (Negative); Specific Gravity, Urine 1.015 (1.002-1.030); Urine Clarity Clear (Clear); Urine Urobilinogen 1 mg/dl (Normal)
[2018-06-18 15:32] LABS: Urine Bilirubin Dipstick 1 mg/dL (Negative)
--- NOTE | 2018-06-18 15:43 | ED.DEP ---
ED Disposition - Plan for ED Patient: Disposition: Home or Assisted Living Chief Complaint: Weakness Instructions: ED Weakness [facility] Referrals: Jorgito Gutierres III, MD [Primary Care Provider] -
[2018-06-18 15:47] LABS: White Blood Cells 0-5 SEEN /hpf (0-5)
== END 2018-06-18 16:07 | disposition home or self-care (01) ==
PROVIDERS: Emergency Provider Emergency Medicine; Family Provider Family Medicine; PCP Family Medicine
DX: R42 Dizziness and giddiness (principal); R53.1 Weakness; J44.9 Chronic obstructive pulmonary disease, unspecified; I10 Essential (primary) hypertension; M06.9 Rheumatoid arthritis, unspecified; R05 Cough; Z79.52 Long term (current) use of systemic steroids; Z79.899 Other long term (current) drug therapy
CPT/HCPCS: 71045; 80053; 81001; 84484; 85025; 93005; 96360; 99285; J7030; J7040; P9612; A4216